=== PATIENT | female | born 1980 | race African-American/Black ===

== ENCOUNTER 2017-02-16 17:57 | Emergency (ER) | payer MEDICAID, OTHER, SELFPAY ==
[2017-02-16] MEDS ORDERED: Morphine 4 MG/ML VIAL ONE ×2 (18:25→20:49)
[2017-02-16] MEDS ORDERED: Ondansetron HCl/PF 4 MG/2 ML Vial ONE (20:49)
[2017-02-16 20:53] LABS: ALT (SGPT) 18 U/L (8-55); AST (SGOT) 17 U/L (5-34); Albumin 3.6 g/dL (3.5-5.0); Alkaline Phosphatase 56 U/L (40-150); Bilirubin, Direct 0.1 mg/dL (0.1-0.3); Bilirubin, Total 0.2 mg/dL (0.2-1.2); Protein, Total 6.8 g/dL (6.0-8.3)
--- NOTE | 2017-02-16 22:29 | ULT ---
EXAM PELVIC ULTRASOUND 02/16/17 HISTORY: Pelvic pain. Evaluate for ovarian torsion. Previous left tubal . COMPARISON: 09/28/14. TECHNIQUE: Transabdominal and endovaginal imaging of the pelvis is performed. Ovaries are interrogated with nesbitt scale, color flow, doppler imaging with spectral waveform analysis. FINDINGS: The uterus is identified, without myometrial masses. The uterus measures 9.0 x 4.2 x 4.6 cm. Endometr ium has a homogeneous echotexture measuring 1.3 cm. Small Nabothian cyst is suspected measuring 1.3 c m. Left ovary is not appreciated. No masses or fluid in the left adnexa. Right ovary has a slightly hypoechoic echotexture. Right ovary measures 2.9 x 1.8 x 1.2 cm. OVARIAN DOPPLER: There is flow demonstrated to the right ovary. IMPRESSION: Limited evaluation of the pelvic structures due to bowel gas. There is decreased echogenicity of the right ovary, nonspecific. There is still evidence of some vascular flow to the right ovary. Consider [employer] SALES REPRESENTATIVE consultation. POS: [facility]
== END 2017-02-16 21:58 | disposition home or self-care (01) ==
LOC: ERS 17:57
DX: R10.2 Pelvic and perineal pain (principal); K21.9 Gastro-esophageal reflux disease without esophagitis; E05.90 Thyrotoxicosis, unspecified without thyrotoxic crisis or storm; F41.9 Anxiety disorder, unspecified; F31.9 Bipolar disorder, unspecified; Z87.891 Personal history of nicotine dependence
CPT/HCPCS: 36415; 76856; 80076; 83605; 83690; 96361; 96374; 96375; 96376; J2270; J2405

== ENCOUNTER 2017-02-18 15:53 | Emergency (ER) | payer OTHER, SELFPAY ==
[2017-02-18 17:13] LABS: #Basophils 0.1 thou/uL (0.0-0.2); #Eosinphils 0.2 thou/uL (0.0-0.7); #Lymphocytes 2.2 thou/uL (1.20-3.40); #Monocytes 0.5 thou/uL (0.11-0.59); #Neutrophils 2.4 thou/uL (1.40-6.50); %Basophils 0.9 % (0.0-1.0); %Eosinophils 3.5 % (0.0-10.0); %Lymphocytes 41.8 % (21.0-51.0); %Neutrophils 44.8 % (42.0-75.0); Hemoglobin 11.3 g/dL (12.0-16.0); Mean Corpuscular Hemoglobin 31.2 pg (27.0-31.0); Mean Corpuscular Volume 97.4 fl (81.0-99.0); Mean Platelet Volume 6.5 fL (7.4-10.4); Platelet Count 363 thou/uL (130-400); RBC Distribution Width 11.8 % (11.5-14.5); Red Blood Cell (RBC) Count 3.61 mill/uL (4.20-5.40); White Blood Cell (WBC) Count 5.4 thou/uL (4.8-10.8)
[2017-02-18 17:38] LABS: ALT (SGPT) 23 U/L (8-55); AST (SGOT) 22 U/L (5-34); Albumin 3.9 g/dL (3.5-5.0); Alkaline Phosphatase 56 U/L (40-150); Anion Gap 13 mmol/L (10-20); BUN (Urea Nitrogen) 14 mg/dL (7.0-18.7); Bilirubin, Total Less than 0.2 mg/dL (0.2-1.2); Calc. Creatinine Clearance 0 mL/min (70-130); Calcium 8.9 mg/dL (7.8-10.44); Carbon Dioxide 23 mmol/L (22-29); Chloride 106 mmol/L (98-107); Estimated GFR-MDRD Greater than 90; Globulin 3.3 g/dL (2.4-3.5); Glucose 91 mg/dL (70-105); Potassium 3.8 mmol/L (3.5-5.1); Protein, Total 7.2 g/dL (6.0-8.3); Sodium 138 mmol/L (136-145)
[2017-02-18 18:06] LABS: Bilirubin Negative (Negative); Blood, Urine Large (Negative); Clarity CLEAR (Clear); Glucose, Urine (Dipstick) Negative (Negative); Leukocyte Negative (Negative); Nitrite Negative (Negative); Protein, Urine (Dipstick) Negative (Neg-Trace); Specific Gravity, Urine 1.018 (1.002-1.036); Urobilinogen 0.2 mg/dL (0.2-1.0)
[2017-02-18 18:08] LABS: Bacteria/HPF None Seen HPF (None Seen); Hyaline Casts/LPF 0-3 HYALINE CAST LPF (0-3 Hyaline); Squamous Epithelial 0-3 HPF (0-3); WBC/HPF 0-3 HPF (0-3)
[2017-02-18] MEDS ORDERED: Ketorolac Tromethamine 30 MG/ML VIAL ONE ×2 (18:56→20:30)
--- NOTE | 2017-02-18 20:53 | ULT ---
EXAM: ENDOVAGINAL ULTRASOUND 02/18/17 HISTORY: Pelvic pain. COMPARISON: 02/16/17. TECHNIQUE: Endovaginal imaging of the pelvis is performed. Ovaries are interrogated with nesbitt scale, color flow, doppler imaging with spectral waveform analysis. FINDINGS: The uterus is identified. There are no myometrial masses. The uterus measures 9.1 x 4.9 x 5.4 cm. End ometrium has a homogeneous echotexture with a diameter of 0.7 cm. Right ovary has a normal echotexture measuring 2.9 x 1.7 x 2.7 cm. The left ovary has a normal echote xture measuring 2.7 x 2.1 x 2.4 cm. There is no free fluid. Nabothian cysts in the cervix are noted. OVARIAN DOPPLER: Vascular flow to the left and right ovary. IMPRESSION: Unremarkable pelvic ultrasound. POS: [facility]
== END 2017-02-18 20:44 | disposition home or self-care (01) ==
LOC: ERS 15:53
DX: R10.32 Left lower quadrant pain (principal); E78.5 Hyperlipidemia, unspecified; E05.90 Thyrotoxicosis, unspecified without thyrotoxic crisis or storm; F31.9 Bipolar disorder, unspecified; F41.9 Anxiety disorder, unspecified; K21.9 Gastro-esophageal reflux disease without esophagitis; M32.9 Systemic lupus erythematosus, unspecified; Z87.891 Personal history of nicotine dependence; Z85.850 Personal history of malignant neoplasm of thyroid
CPT/HCPCS: 36415; 76856; 80053; 81003; 81015; 83690; 85025; 96361; 96374; 96376; J1885

== ENCOUNTER 2017-04-14 11:18 | Outpatient (CLI) | payer OTHER ==
--- NOTE | 2017-04-14 18:33 | MRI ---
MRI LUMBAR SPINE NONCONTRAST 04/14/17 HISTORY: Low back pain. Left leg weakness. Falling. FINDINGS: The conus medullaris has a normal appearance. Vertebral body heights and alignment are maintained. D isc hydration is within normal limits. Bone marrow signal is unremarkable. The central canal and neur al foramina are patent. IMPRESSION: Normal MRI appearance of the lumbar spine. POS: [facility]
== END 2017-04-14 11:19 | disposition home or self-care (01) ==
LOC: SCSMRI 11:18
PROVIDERS: ATTEND Orthopaedic Surgery
DX: M48.061 Spinal stenosis, lumbar region without neurogenic claudication (principal); M54.16 Radiculopathy, lumbar region
CPT/HCPCS: 72148

== ENCOUNTER → 2017-05-04 | Day surgery (SDC) | payer OTHER ==
[~2017-05-04] MED LIST: Gadobenate Dimeglumine 529 MG/1 ML (20ML VIAL) ONE
--- NOTE | 2017-05-04 10:37 | MRI ---
BRAIN MRI WITH AND WITHOUT CONTRAST: Date: 05/04/17 COMPARISON: None. HISTORY: Generalized epilepsy, history of seizure. TECHNIQUE: Multiplanar, multisequence MR imaging of the brain is obtained with and without contrast using a seiz ure protocol. FINDINGS: The diffusion-weighted imaging demonstrates no evidence for acute infarction. Pineal calcification noted when correlated with the 03/15/[address]> There is motion artifact noted on FLAIR imaging. No midline shift, mass effect, or ventricular enlarg ement. Coronal gradient echo imaging demonstrates no abnormal intracranial calcification or evidence of hemo rrhage. Regional bone marrow signal intensity is grossly unremarkable. Arterial flow-voids at the axial level of the skull base appear grossly unremarkable on the T2-weight ed imaging. There is mucosal thickening involving the ethmoid air cells bilaterally. The postcontrast imaging appears grossly unremarkable. Coronal thin section imaging through the hippo campi demonstrate no discrete abnormality, but are significantly limited on the basis of patient head motion artifact. IMPRESSION: No acute findings. POS: [facility]
--- NOTE | 2017-05-04 10:50 | MRI ---
CERVICAL SPINE MRI WITHOUT CONTRAST: Date: 05/04/17 COMPARISON: None. HISTORY: Cervical spondylosis, fall 2 months ago, neck pain and bilateral shoulder pain with arm pain. TECHNIQUE: Multiplanar, multisequence MR imaging of cervical spine obtained without contrast. FINDINGS: The sagittal STIR imaging demonstrates no focal area of osseous marrow edema. The cervical vertebral body height and alignment is normal. No prevertebral soft tissue abnormality is noted. C2-3: Intervertebral disc height and signal intensity is within normal limits with no central canal or neur al foraminal stenosis. C3-4: Intervertebral disc height and signal intensity is within normal limits with no significant central c anal or neural foraminal stenosis. C4-5: Intervertebral disc height and signal intensity is within normal limits with no significant central c anal or neural foraminal stenosis. C5-6: Intervertebral disc height and signal intensity is within normal limits with no significant central c anal or neural foraminal stenosis. C6-7: Intervertebral disc height and signal intensity is within normal limits with no significant central c anal or neural foraminal stenosis. C7-T1: Intervertebral disc height and signal intensity is within normal limits with no significant central c anal or neural foraminal stenosis. No focal area of abnormal signal intensity is identified within the cervical cord. No suspicious focal area of osseous marrow signal. IMPRESSION: Unremarkable cervical spine MRI. POS: [facility]
== END ==
LOC: MRI 07:19 → RAD 07:20
PROVIDERS: ATTEND Psychiatry & Neurology Neurology
DX: M47.812 Spondylosis without myelopathy or radiculopathy, cervical region (principal); G40.309 Generalized idiopathic epilepsy and epileptic syndromes, not intractable, without status epilepticus; F31.9 Bipolar disorder, unspecified; F41.9 Anxiety disorder, unspecified; M32.9 Systemic lupus erythematosus, unspecified; K21.9 Gastro-esophageal reflux disease without esophagitis; E89.0 Postprocedural hypothyroidism; Z88.2 Allergy status to sulfonamides; Z88.8 Allergy status to other drugs, medicaments and biological substances; Z79.899 Other long term (current) drug therapy; Z87.891 Personal history of nicotine dependence
CPT/HCPCS: 70553; 72141; 95816; A9579

== ENCOUNTER 2017-06-09 05:48 | Day surgery (SDC) | payer OTHER ==
[2017-06-08 11:27] VITALS: BMI 39.6
--- NOTE | 2017-06-08 13:23 | SS ---
DATE OF ADMISSION: 06/09/2017 HISTORY OF PRESENT ILLNESS: This is a 37-year-old female referred to me for evaluation of persistent acid reflux and nausea and vomiting. The patient has had acid reflux for a while. Recently her symptoms are getting worse. She also complains recurrent nausea and vomiting. The janene ent has had no dysphagia. The patient also has history of abdominal pain off and on. The pain occur s at random and at times also after meals. She has history of feeling full and bloated after meals. The patient comes in for EGD because of the persistent acid reflux with nausea and vomiting. ALLERGIES: TYLENOL, SULFA. SOCIAL HISTORY: The patient is a former smoker. She does not drink alcohol. MEDICAL ILLNESSES: 1. Diabetes mellitus. 2. Hypertension. 3. Seizure disorder. 4. Bronchial asthma. 5. Hypothyroidism. 6. Obesity. 7. Bipolar disorder. 8. History of mild lupus erythematosus. 9. History of thyroidectomy for cancer in the past. 10. Hysterectomy. PHYSICAL EXAMINATION: VITAL SIGNS: Pulse is 70, blood pressure 130/80. HEENT: Conjunctivae clear. CARDIOVASCULAR SYSTEM: Within normal limits. ABDOMEN: Soft to palpate. Abdomen is mildly tender over the epigastric area. There is no rebound o r guarding. ADMITTING DIAGNOSES: Chronic acid reflux associated with some nausea and vomiting. She also has upp er abdominal pain. PLAN: EGD.
--- NOTE | 2017-06-09 08:07 | OP ---
DATE OF PROCEDURE: 06/09/2017 SURGEON: Wade Verdugo M.D. OPERATIVE PROCEDURE: Esophagogastroduodenoscopy. PREOPERATIVE DIAGNOSES: A 37-year-old female with abdominal pain, chronic acid reflux and also nause a and vomiting. The patient's symptoms are persistent. The patient undergoing esophagogastroduodeno scopy. POSTOPERATIVE DIAGNOSES: 1. Normal esophageal mucosa. No esophagitis seen. 2. Small hiatus hernia. 3. Otherwise, the exam is normal. PROCEDURE IN DETAIL: The patient was placed on her left lateral position and was given sedation by A nesthesia Department. A [employer]ax video gastroscope under direct vision was passed in the oropharynx, p ast the GE junction, into the stomach and subsequently into descending duodenum. Although the patien t complains of severe acid reflux, at endoscopy the esophageal mucosa appeared normal. No esophagiti s seen. The GE junction, no pathology seen. The patient has a small hiatus hernia. Retroflexion fa iled to show any pathology in the fundus and cardia. The gastric body, gastric antrum, no pathology seen. The duodenal bulb, descending duodenum, no pathology seen. The stomach was decompressed and t he scope removed. DISCHARGE PLANNING: This is a 37-year-old female with chronic acid reflux with nausea and vomiting. The patient's symptoms are persistent over the last several weeks. The EGD actually is basically no rmal. There is no pathology seen. RECOMMENDATIONS: 1. Obtain abdominal sonogram. 2. Symptomatic treatment.
[2017-06-09] MEDS ORDERED: Ondansetron ODT 4 MG TAB ONE (08:25)
[2017-06-09] MEDS ORDERED: Lidocaine 1% PF 5 ML VIAL ONE (12:30)
[2017-06-09] MEDS ORDERED: PROPOFOL 200 MG/20 ML VIAL ONE (12:30)
== END 2017-06-09 08:53 | disposition home or self-care (01) ==
LOC: SDC 05:48
PROVIDERS: ATTEND Internal Medicine Gastroenterology
PROC: 0DJ08ZZ Inspection of Upper Intestinal Tract, Via Natural or Artificial Opening Endoscopic (ICD-10-PCS; principal; 2017-06-09)
DX: K21.9 Gastro-esophageal reflux disease without esophagitis (principal); R10.10 Upper abdominal pain, unspecified; K44.9 Diaphragmatic hernia without obstruction or gangrene; E11.9 Type 2 diabetes mellitus without complications; I10 Essential (primary) hypertension; G40.909 Epilepsy, unspecified, not intractable, without status epilepticus; J45.998 Other asthma; E66.9 Obesity, unspecified; F31.9 Bipolar disorder, unspecified; M32.9 Systemic lupus erythematosus, unspecified; E89.0 Postprocedural hypothyroidism; Z68.39 Body mass index [BMI] 39.0-39.9, adult; Z79.1 Long term (current) use of non-steroidal anti-inflammatories (NSAID); Z79.899 Other long term (current) drug therapy; Z88.6 Allergy status to analgesic agent; Z88.2 Allergy status to sulfonamides; Z88.1 Allergy status to other antibiotic agents; Z87.891 Personal history of nicotine dependence
CPT/HCPCS: Q0162

== ENCOUNTER 2017-08-12 13:13 | Outpatient (CLI) | payer OTHER ==
--- NOTE | 2017-08-12 14:13 | RAD ---
CERVICAL SPINE 6 VIEWS: HISTORY: Spondylosis. COMPARISON: None. FINDINGS: On the open mouth projection, the lateral masses of C1 and C2 as well as the odontoid process are int act. On the AP projection, no malalignment. Lateral and swimmer's views do not demonstrate any abnormality with regards to the cervical vertebrae . Vertebral body height is maintained. No definite fracture. Limited evaluation of the cervicothor acic junction. No prevertebral soft tissue swelling. Predental space is normal. Mild straightening of the normal cervical lordosis in the neutral position. Upon extension and flexion, no abnormal mo tion. IMPRESSION: No significant degenerative change. POS: [facility]
== END 2017-08-12 13:14 | disposition home or self-care (01) ==
LOC: RAD 13:13
PROVIDERS: ATTEND Nurse Practitioner Family
DX: M47.812 Spondylosis without myelopathy or radiculopathy, cervical region (principal); M43.17 Spondylolisthesis, lumbosacral region
CPT/HCPCS: 72050

== ENCOUNTER 2017-08-17 10:11 | Outpatient (CLI) | payer OTHER ==
[~2017-08-17 10:11] MED LIST changes: -Gadobenate Dimeglumine 529 MG/1 ML (20ML VIAL) ONE; +Iopamidol 370 76% 100 ML VIAL ONE
--- NOTE | 2017-08-17 12:29 | CT ---
CT OF NECK SOFT TISSUES WITH CONTRAST: CLINICAL INDICATION: History of prior thyroid cancer, status post thyroidectomy. COMPARISON: No prior imaging comparisons. FINDINGS: Imaged orbital contents are unremarkable. There is accessory parotid tissue of the right buccal laura on. No significant adenopathy of either parotid or submandibular gland. There is a retropharyngeal course of the right carotid artery. Epiglottis is normal in caliber. There are no pathologically en larged lymph nodes of the neck. Thyroid gland is not visualized, correlating to the history of prior treatment. No mass effect of the nasopharynx. Glottis is normal in appearance. Subglottic trachea l air column is patent. Nonspecific, scattered mediastinal lymph nodes are seen within the visualize d superior aspect. There are no acute osseous abnormalities. IMPRESSION: 1. Evidence of prior thyroidectomy. 2. No acute abnormality of the neck soft tissues. 3. Additional details are described above. POS: [facility]
== END 2017-08-17 10:12 | disposition home or self-care (01) ==
LOC: SCSCT 10:11
PROVIDERS: ATTEND Family Medicine
DX: Z08 Encounter for follow-up examination after completed treatment for malignant neoplasm (principal); E89.0 Postprocedural hypothyroidism; Z85.850 Personal history of malignant neoplasm of thyroid
CPT/HCPCS: 70491

== ENCOUNTER 2017-09-15 07:47 | Outpatient (CLI) | payer OTHER ==
--- NOTE | 2017-09-15 13:40 | CT ---
ABDOMEN CT WITH CONTRAST PELVIC CT WITH CONTRAST: Date: 09/15/17 HISTORY: Left lower quadrant pain x1 month. Evaluate for diverticulitis. COMPARISON: 08/02/17. TECHNIQUE: Abdomen and pelvis CT performed with IV contrast. Enteric contrast was also administered. Coronal ref ormatted images are submitted for interpretation. FINDINGS: ABDOMEN CT: Lung bases are clear. Small hiatal hernia is noted. Heart size is normal. No pericardial effusion. Th e descending thoracic aorta and abdominal aorta have a normal caliber. No periaortic fat stranding. Subcentimeter hypodensity right hepatic lobe cannot be further characterized. No abnormal enhancement in the liver, spleen, pancreas, or other adrenal gland. Contracted gallbladder due to nonfasting state. Symmetric enhancement of the kidneys. Bilaterally, no obstructive uropathy. No gastrohepatic, retrocrural, or periportal lymphadenopathy. No mesenteric mass, lymphadenopathy, free air, or free fluid. Gastric mucosa, duodenum, and small bowel loops are unremarkable. Ileocecal junction is normal. Alba l caliber appendix. Scattered fecal material in a nondistended, nondilated colon. No significant dive rticulosis. No evidence of diverticulitis. The left hemicolon is unremarkable. PELVIC CT: Uterus is surgically absent. Persistent hypodensity in the left adnexa measuring 1.8 x 2.0 cm. The po ssibility of a complex left ovarian cyst is raised given that the attenuation coefficient is 47 Houns field units. The right ovary has an atypical location and appears to be just inferior to the aortic b ifurcation. Unremarkable urinary bladder. No lytic or blastic lesions in the osseous structures. IMPRESSION: 1. No evidence of diverticulosis or diverticulitis. 2. Normal caliber appendix. 3. Persistent hypoattenuation involving the left adnexal structure, likely representing a complex le ft ovarian cyst. Follow-up ultrasound is recommended. Atypical location of the right ovary, inferior to the aortic bifurcation. Atypical location likely due to previous hysterectomy. POS: [facility]
== END 2017-09-15 07:48 | disposition home or self-care (01) ==
LOC: SCSCT 07:47
PROVIDERS: ATTEND Family Medicine
DX: R10.2 Pelvic and perineal pain (principal); Z90.710 Acquired absence of both cervix and uterus
CPT/HCPCS: 74177

== ENCOUNTER 2017-09-15 11:01 | Outpatient (CLI) | payer OTHER ==
--- NOTE | 2017-09-15 11:58 | MMO ---
BILATERAL DIGITAL SCREENING MAMMOGRAMS: Date: 09/15/17 HISTORY: 37-year-old female presents for baseline digital screening mammogram. FINDINGS: This patient's mammogram was interpreted with the assistance of computer-aided detection. The breasts are heterogeneously dense, which can obscure small masses. No direct or indirect evidence of malignancy. There are multiple areas of parenchymal density asymmetry, which are benign. IMPRESSION: BIRADS 2: Benign Finding(s) Continue routine screening. POS: [facility]
== END 2017-09-15 11:02 | disposition home or self-care (01) ==
LOC: SCSMAMMO 11:01
PROVIDERS: ATTEND Family Medicine
DX: Z12.31 Encounter for screening mammogram for malignant neoplasm of breast (principal)
CPT/HCPCS: 77067

== ENCOUNTER 2018-08-21 13:57 | Emergency (ER) | payer SELFPAY ==
[2018-08-21] MEDS ORDERED: Ketorolac Tromethamine 30 MG/ML VIAL ONE (16:30)
[2018-08-21 19:02] LABS: #Eosinphils 0.1 thou/uL (0.0-0.7); #Lymphocytes 1.9 thou/uL (1.20-3.40); #Monocytes 0.3 thou/uL (0.11-0.59); #Neutrophils 3.9 thou/uL (1.40-6.50); %Basophils 0.5 % (0.0-1.0); %Lymphocytes 29.7 % (21.0-51.0); %Monocytes 5.4 % (0.0-10.0); %Neutrophils 62.3 % (42.0-75.0); Hemoglobin 12.9 g/dL (12.0-16.0); Mean Corpuscular HGB CONC 33.7 g/dL (32.0-36.0); Mean Corpuscular Hemoglobin 34.8 pg (27.0-31.0); Mean Platelet Volume 7.3 fL (7.4-10.4); Platelet Count 317 thou/uL (130-400); RBC Distribution Width 10.6 % (11.5-14.5); White Blood Cell (WBC) Count 6.3 thou/uL (4.8-10.8)
[2018-08-21 19:23] LABS: ALT (SGPT) 14 U/L (8-55); AST (SGOT) 15 U/L (5-34); Albumin 4.2 g/dL (3.5-5.0); Alkaline Phosphatase 48 U/L (40-150); Anion Gap 15 mmol/L (10-20); BUN (Urea Nitrogen) 13 mg/dL (7.0-18.7); Bilirubin, Total Less than 0.2 mg/dL (0.2-1.2); Calc. Creatinine Clearance 0 mL/min (70-130); Calcium 8.6 mg/dL (7.8-10.44); Carbon Dioxide 19 mmol/L (22-29); Chloride 108 mmol/L (98-107); Estimated GFR-MDRD Greater than 90; Globulin 3.1 g/dL (2.4-3.5); Glucose 85 mg/dL (70-105); Potassium 3.8 mmol/L (3.5-5.1); Protein, Total 7.3 g/dL (6.0-8.3); Sodium 138 mmol/L (136-145)
--- NOTE | 2018-08-21 20:27 | CT ---
CT BRAIN NONCONTRAST: DATE: 08/21/2018 HISTORY: 38-year-old female with dizziness and headache. FINDINGS: There is no evidence of acute intra-axial or extra-axial hemorrhage. There is no midline shift or any other mass effect. There is no extra-axial fluid collection. The ventricles are normal in size and configuration. The tympanomastoid cavities, and the upper portions of the paranasal sinuses included in these images, are grossly clear. Calvarium is intact. IMPRESSION: Normal.
[2018-08-21] MEDS ORDERED: Metoclopramide HCl 10 MG TAB ONE (20:46)
== END 2018-08-21 21:34 | disposition home or self-care (01) ==
LOC: ERS 13:57
DX: R42 Dizziness and giddiness (principal); R51 Headache; E78.5 Hyperlipidemia, unspecified; E03.9 Hypothyroidism, unspecified; K21.9 Gastro-esophageal reflux disease without esophagitis; M32.9 Systemic lupus erythematosus, unspecified; F41.9 Anxiety disorder, unspecified; F31.9 Bipolar disorder, unspecified; Z87.891 Personal history of nicotine dependence; Z79.899 Other long term (current) drug therapy
CPT/HCPCS: 36415; 70450; 80053; 85025; 93005; 96372; J1885; J8597

== ENCOUNTER 2018-09-09 15:52 | Emergency (ER) | payer SELFPAY ==
[2018-09-09] MEDS ORDERED: Ibuprofen 200 MG TAB ONE (16:14)
--- NOTE | 2018-09-09 16:24 | RAD ---
CHEST 2 VIEWS: Date: 09/09/18 HISTORY: Cough and sore throat. COMPARISON: 02/02/18. FINDINGS: Heart size is normal. The lungs are clear. IMPRESSION: No acute intrathoracic disease. No evidence for pneumonia. POS: [facility]
== END 2018-09-09 16:43 | disposition home or self-care (01) ==
LOC: ERS 15:52
DX: J06.9 Acute upper respiratory infection, unspecified (principal); E78.5 Hyperlipidemia, unspecified; K21.9 Gastro-esophageal reflux disease without esophagitis; E03.9 Hypothyroidism, unspecified; F32.9 Major depressive disorder, single episode, unspecified; F41.0 Panic disorder [episodic paroxysmal anxiety]; Z87.891 Personal history of nicotine dependence; Z79.899 Other long term (current) drug therapy; Z79.51 Long term (current) use of inhaled steroids
CPT/HCPCS: 71046; 87081; 87430